=== PATIENT | female | born 2000 | race Caucasian/White ===

== ENCOUNTER 2024-09-09 15:28 | Emergency (ER) | payer OTHER, SELFPAY ==
[2024-09-09 15:31] VITALS: BP 103/73
[2024-09-09 15:48] LABS: % Basophils 0.8 % (0-2); % Eosinophils 1.4 % (0-6); % Immature Granulocytes 0.3 % (0-0.5); % Lymphocytes 40.5 % (20.5-51.1); % Monocytes 6.3 % (1.7-9.3); % Neutrophils 50.7 % (42.2-75.2); Absolute Basophils 0.1 10^3/uL (0-0.2); Absolute Eosinophils 0.1 10^3/uL (0-0.7); Absolute Lymphocytes 3.2 10^3/uL (1.2-3.4); Absolute Monocytes 0.5 10^3/uL (0.1-0.6); Hematocrit 39.2 % (37.0-47.0); Hemoglobin 13.6 g/dL (12.0-16.0); Mean Corp Hgb Conc. 34.7 g/dL (33.0-37.0); Mean Corpuscular Hgb 29.9 pg (27.0-31.0); Mean Corpuscular Volume 86.2 fL (81.0-99.0); Mean Platelet Volume 9.6 fL (7.4-10.4); Nucleated Red Blood Cells % 0 %; Platelet Count 242 10^3/uL (130-400); Red Blood Cell Count 4.55 10^6/uL (4.20-5.40); Red Cell Dist. Width 12.2 % (11.5-14.5); White Blood Cell Count 7.9 10^3/uL (4.8-10.8)
[2024-09-09 15:59] LABS: HCG, Serum Qualitative Screen Negative
[2024-09-09 16:03] LABS: ALT (SGPT) 16 U/L (0-35); AST (SGOT) 19 U/L (14-36); Albumin 4.5 g/dl (3.5-5.0); Alkaline Phosphatase 59 U/L (38-126); Blood Urea Nitrogen 6 mg/dl (7-17); Calcium 9.3 mg/dl (8.4-10.2); Carbon Dioxide 19 mmol/L (22-30); Chloride 108 mmol/L (98-107); Glucose 101 mg/dl (70-99); Potassium 3.7 mmol/L (3.5-5.1); Sodium 143 mmol/L (135-145); Total Bilirubin 0.3 mg/dl (0.2-1.3); Total Protein 7.1 g/dl (6.3-8.2); eGFR > 60.00
--- NOTE | 2024-09-09 17:29 | ED.GENMED ---
History of Present Illness
General
Chief Complaint: Vomiting Blood
Time Seen by Provider: 09/09/24 17:08
History of Present Illness
History of Present Illness:
Patient is a 24-year-old woman with history of anxiety, bipolar disorder presenting to the emergency department with blood-tinged emesis. Patient states about a week ago she had a significant amount of alcohol more than she is used to. She states
that since then she has been having some heartburn and nausea. She also states she is under a lot of stress. Since the alcohol intake patient states that she is having decreased p.o. secondary to nausea. She started vomiting 2 days ago.
Yesterday there was a spot of blood in it and today she had a streak of blood so she came in for further evaluation. She does have a family history of peptic ulcer disease. She occasionally does get a metallic taste in her mouth and burning chest
pain consistent with reflux. At this time patient denies any fevers chills or abdominal pain. She does feel slightly nauseous. Her did have similar symptoms and he was hospitalized for however he is now better. She denies any urinary
symptoms. Her last period was years ago she is on the Depo shot.
Past History
Past History
ED Past Medical History: None and Other (Anxiety)
ED Past Surgical History: None
Social History
Tobacco: Non-smoker
Alcohol: None
Family History
Family History: Other (She was adopted but knows her natural mother had seizures)
Phy Exam
Physical Exam
Physical Exam:
GENERAL: in no acute distress
HEENT: normocephalic, extraocular movements intact, dry oral mucosa
NECK: normal inspection
RESPIRATORY: no respiratory distress, clear to auscultation bilaterally
CARDIOVASCULAR: regular rate and rhythm
ABDOMEN/: soft, non-distended, non-tender to palpation, no rebound or guarding
EXTREMITIES: non-tender, no edema/swelling
NEUROLOGIC: awake and alert, moves all extremities
SKIN: warm
Course
Orders/Labs/Results
Orders:
Orders
09/09/24 15:34
Test Result ONCE
09/09/24 15:42
Complete Blood Count/With Diff Urgent
Comprehensive Metabolic Panel Urgent
HCG, Serum Qualitative Screen Urgent
09/09/24 17:28
0.9% Sodium Chloride 1000 ml [Nss] 1,000 ml IV BOLUS
Famotidine [Pepcid] 20 mg IV NOW STA
Mag Hydrox/Al Hydrox/Simeth [Maalox] 30 ml PO NOW STA
09/09/24 17:32
Ondansetron Injectable [Zofran] 4 mg IV NOW STA
09/09/24 17:52
Lactic Acid Urgent
09/09/24 19:42
Urinalysis Reflex To Culture Urgent
Date Specimen was Collected: 09/09/24
Time Specimen was Collected: 19:21
Urine Microscopic Reflex Cult Urgent
Abnormal Lab Results
09/09/24 09/09/24
15:42 19:42
Chloride 108 H mmol/L
(98-107)
Carbon Dioxide 19 L mmol/L
(22-30)
BUN 6 L mg/dl
(7-17)
Glucose 101 H mg/dl
(70-99)
Urine Ketones 2+ A
(Negative)
Urine Urobilinogen 2+ A
(Neg - 1+)
Leukocyte Esterase Rfl Trace A
(Negative)
Urine Bacteria (Reflex) Few A
(Negative)
09/09/24 15:42
09/09/24 15:42
Vital Signs
Initial and Last Documented VS:
Initial Vital Signs
Temp Pulse Resp BP Pulse Ox
98.4 F 108 18 103/73 96
09/09/24 15:31 09/09/24 15:31 09/09/24 15:31 09/09/24 15:31 09/09/24 15:31
Last Documented Vital Signs
Temp Pulse Resp BP Pulse Ox
98.4 F 68 16 97/65 99
09/09/24 15:31 09/09/24 20:28 09/09/24 20:28 09/09/24 20:28 09/09/24 20:28
MDM/Problems Addressed
Differential Diagnosis Includes:
Patient is a 24-year-old woman presenting to the emergency department with 1 week of decreased p.o. and 2 days of blood streaks in her emesis. Vitals here notable for blood pressure of 103/73 and exam does show dry oral mucosa with a benign
abdomen. Likely hematemesis from Adrianna-Briseno tear or peptic ulcer disease or gastritis/esophagitis with alcohol and stress. No significant alcohol intake to suggest varices. No history of bleeding disorders and she is not on any blood thinners.
Abdomen is benign so less likely to be an acute abdomen. Blood work obtained prior to evaluation does show an anion gap acidosis. Will add on lactate and check urine for ketones. test negative. Will give fluids and Zofran. Will
reassess to see if symptoms have improved and she can tolerate p.o.
*Critical Care Note
Total Time (30-74mins, 75-104mins- exclusive of procedures): Not Applicable
Update Note
Update Note:
Lactate is normal. There are ketones in her urine likely from starvation ketosis which does explain the bicarb. She is overall well-appearing. Pain has improved. She is tolerating p.o. Will discharge at this time
ED Attending Note
-
Portions of this chart may have been created with voice recognition software.� Occasional wrong word or��sound alike� substitutions may have occurred due to the inherent limitations of voice recognition software.
Discharge Plan
Departure
Patient Disposition: Home (Routine Discharge)
Date of Disposition: 09/09/24
Time of Disposition: 20:55
Patient with high blood pressure during this ER visit?: No
Discharge Problem:
Vomiting
Instructions: Nausea and Vomiting, Adult (DC)
Prescriptions:
No Action
ibuprofen 600 MG tablet
600 mg PO Q4HPRN PRN (Reason: cramps) Qty: 0 0RF
Referrals:
Gregorio Lu MD [Family Provider] -
Interventions
Interventions:
*Risk Screen - Suicide Last Done: 09/09/24 15:31
*General Assessment Last Done: 09/09/24 15:31
*Neglect/Abuse Screening Last Done: 09/09/24 15:31
ED- Fall Risk Assessment Last Done: 09/09/24 19:44
RX-Ajetrg-Nwdpqeekfc Assessment Last Done: 09/09/24 19:44
ED- Pulmonary Assessment Last Done: 09/09/24 19:44
Discharge Date and Time
Print Language: FRENCH
[2024-09-09 18:15] LABS: Lactic Acid 0.7 mmol/L (0.7-2.0)
[2024-09-09] MEDS: PEPCID 20 MG IV (18:16)
[2024-09-09] MEDS: NSS 1000 IV (18:16)
[2024-09-09] MEDS: MAALOX 30 ML PO (18:17)
[2024-09-09] MEDS: ZOFRAN 4 MG IV (18:17)
[2024-09-09 18:20] VITALS: BP 100/68
[2024-09-09 19:42] VITALS: BMI 32.5
[2024-09-09 19:50] LABS: Urine Albumin Trace (Neg - Trace); Urine Bilirubin Negative (Negative); Urine Character Clear (Clear); Urine Color Yellow; Urine Glucose Negative (Negative); Urine Ketone 2+ (Negative); Urine Leukocyte Trace (Negative); Urine Nitrite Negative (Negative); Urine Occult Blood Negative (Negative); Urine Urobilinogen 2+ (Neg - 1+)
--- NOTE | 2024-09-09 20:00 | EDRN ---
Patient unhooked to use the restroom and back in bed resting comfortably
[2024-09-09 20:04] LABS: Urine Squamous Cell 16-20 /LPF (Few)
[2024-09-09 20:05] LABS: Urine Bacteria Few (Negative); Urine Red Blood Cell None Seen /HPF (0-2)
[2024-09-09 20:28] VITALS: BP 97/65
--- NOTE | 2024-09-09 20:58 | EDRN ---
Gave patient some crackers and water, reports some nausea but was able to hold down them, informed Dr. Maki
[2024-09-09] MEDS: ZOFRAN ODT (ORALLY DISINTEGRATING) 4 MG PO (21:18)
== END 2024-09-09 21:24 | disposition home or self-care (01) ==
LOC: EMR 15:28
PROVIDERS: Emergency Medicine; EMERGENCY PHYSICIAN Student in an Organized Health Care Education/Training Program; FAMILY PHYSICIAN Family Medicine
DX: K92.0 Hematemesis (principal); R07.89 Other chest pain; R12 Heartburn; F41.9 Anxiety disorder, unspecified; F31.9 Bipolar disorder, unspecified
CPT/HCPCS: 99284; 96374; 96375; 96361; 80053; 81003; 81015; 83605; 84703; 85025

== ENCOUNTER → 2024-10-10 12:50 | Outpatient (REF) | payer OTHER, SELFPAY | LOC: RCS 12:50 | PROVIDERS: ATTENDING PHYSICIAN Internal Medicine Cardiovascular Disease; FAMILY PHYSICIAN Family Medicine | DX: R00.2 Palpitations (principal) | CPT/HCPCS: 93306 ==

== ENCOUNTER 2024-12-08 19:17 | Emergency (ER) | payer OTHER, SELFPAY ==
[2024-12-08 19:19] VITALS: BP 105/66
[2024-12-08 19:33] LABS: % Basophils 0.5 % (0-2); % Eosinophils 0.7 % (0-6); % Immature Granulocytes 0.4 % (0-0.5); % Lymphocytes 30.8 % (20.5-51.1); % Neutrophils 60.6 % (42.2-75.2); Absolute Eosinophils 0.1 10^3/uL (0-0.7); Absolute Lymphocytes 2.6 10^3/uL (1.2-3.4); Absolute Monocytes 0.6 10^3/uL (0.1-0.6); Absolute Neutrophils 5.2 10^3/uL (1.4-6.5); Hematocrit 37.7 % (37.0-47.0); Hemoglobin 12.9 g/dL (12.0-16.0); Mean Corp Hgb Conc. 34.2 g/dL (33.0-37.0); Mean Corpuscular Hgb 29.8 pg (27.0-31.0); Mean Corpuscular Volume 87.1 fL (81.0-99.0); Mean Platelet Volume 9.4 fL (7.4-10.4); Nucleated Red Blood Cells % 0 %; Platelet Count 244 10^3/uL (130-400); Red Blood Cell Count 4.33 10^6/uL (4.20-5.40); Red Cell Dist. Width 12.1 % (11.5-14.5); White Blood Cell Count 8.6 10^3/uL (4.8-10.8)
[2024-12-08 19:41] LABS: HCG, Serum Qualitative Screen Negative
[2024-12-08 19:46] LABS: ALT (SGPT) 17 U/L (0-35); AST (SGOT) 20 U/L (14-36); Albumin 4.2 g/dl (3.5-5.0); Alkaline Phosphatase 62 U/L (38-126); Blood Urea Nitrogen 7 mg/dl (7-17); Calcium 9.2 mg/dl (8.4-10.2); Carbon Dioxide 21 mmol/L (22-30); Chloride 106 mmol/L (98-107); Glucose 105 mg/dl (70-99); Potassium 3.7 mmol/L (3.5-5.1); Sodium 137 mmol/L (135-145); eGFR > 60.00
[2024-12-08 19:55] LABS: Troponin I < 0.012 ng/ml
--- NOTE | 2024-12-08 23:08 | ED.GENMED ---
History of Present Illness
General
Chief Complaint: Chest Pain
Source: patient
Exam Limitations: none
Time Seen by Provider: 12/08/24 22:49
History of Present Illness
History of Present Illness:
See MDM
Past History
Past History
ED Past Medical History: None and Other (Anxiety)
ED Past Surgical History: None
Social History
Tobacco: Non-smoker
Alcohol: None
Family History
Family History: Other (She was adopted but knows her natural mother had seizures)
Phy Exam
Physical Exam
Physical Exam:
See MDM
Scores
Heart Score for Chest Pain Patients
STEMI patient?: No
History: Slightly or Non-Suspicious
ECG: Normal
Age: </= 45 years
Risk Factors: No Risk Factors
Troponin: </= Normal Limit
Heart Score for Chest Pain Patients: 0
Heart Score Risk: 2.5% MACE over next 6 weeks
Course
Orders/Labs/Results
Orders:
Orders
12/08/24 19:18
Electrocardiogram (*1) Urgent
Reason for Study: Chest Pain
Cardiac Monitoring- Treatment ONCE
EKG- Treatment ONCE
IV Insert/Care/Rem.- Treatment PRN
O2 Therapy [RESP] Urgent
Titrate/Wean O2 to maintain O2 sat greater than (%): 90
Special Instructions: Maintain sats >/=90%
Pulse Ox/spot Check [RESP] Urgent
Quantity: 1
Special Instructions: ON ROOM AIR
12/08/24 19:19
Test Result ONCE
12/08/24 19:26
Complete Blood Count/With Diff Urgent
Comprehensive Metabolic Panel Urgent
HCG, Serum Qualitative Screen Urgent
Comment: Notify provider if positive test present
Troponin I Urgent
12/08/24 23:08
Fosfomycin [Monurol] 3 gm PO ONCE ONE
Abnormal Lab Results
12/08/24
19:26
Carbon Dioxide 21 L mmol/L
(22-30)
Glucose 105 H mg/dl
(70-99)
12/08/24 19:26
12/08/24 19:26
Vital Signs
Initial and Last Documented VS:
Initial Vital Signs
Temp Pulse Resp BP Pulse Ox
97.9 F 77 19 105/66 99
12/08/24 19:19 12/08/24 19:19 12/08/24 19:19 12/08/24 19:19 12/08/24 19:19
Last Documented Vital Signs
Temp Pulse Resp BP Pulse Ox
97.9 F 77 19 105/66 99
12/08/24 19:19 12/08/24 19:19 12/08/24 19:19 12/08/24 19:19 12/08/24 19:19
MDM/Problems Addressed
Differential Diagnosis Includes:
HPI and MDM Narrative:
24-year-old female presenting for evaluation of chest pain, shortness of breath and possible dehydration. Patient states she has not been eating. She states she is homeless and she lives in a hotel with her . She states she usually goes to
[facility] but she came here because her was brought here. Blood work was done prior to my evaluation and there is no significant abnormality. She is not clinically dehydrated. EKG is nonischemic. She is extremely well-appearing
and nontoxic. Will provide food for the patient. On my review of systems, patient does acknowledge that she has dysuria and was diagnosed with a UTI. She has been unable to fill the prescription. Because of this, will give dose of Monurol
Physical exam
General: Well appearing and non-toxic
HEENT: protecting airway
Neck: appears supple
CV: No evidence of cyanosis. Regular rate and rhythm
Resp: No accessory muscle use
Abd: Non-distended. Soft and nontender
Extremities: No deformities
Neuro: alert
Psych: Normal affect
Skin: Intact
Problems Addressed including Acute and Chronic Conditions affecting care:
1. Chest pain
Acuity: acute
Prognosis: stable
Details: EKG nonischemic. Patient extremely well-appearing and nontoxic. Troponin negative
2. Dysuria
Acuity: acute
Prognosis: stable
Details: Given her inability to fill prescriptions, will give dose of Monurol
Differential Diagnosis (but not limited to): Noncardiac chest pain, UTI, dehydration
Testing considered: Second troponin
Drug therapy (if applicable): OTC meds, please see d/c instruction regarding Rx drugs
Amount and/or Complexity of Data Reviewed
Clinical info obtained from: Patient
External data reviewed: N/A
Labs I independently reviewed (but not limited to): Glucose mildly elevated at 105 but patient has been told she has hyperglycemia. We discussed the importance of having this followed
Radiology: N/A
Pulse Ox: not hypoxic
EKG independently reviewed: Sinus rhythm, normal axis, no STEMI
[employer] Passenger Car: N/A
Critical Care: N/A
Risk of Complication:
Social Determinants of health: Poor social support
Discussed with other providers: N/A
Escalation of Care includes Admit/Obs: After being observed in the Emergency Department, pt stable for discharge.
Occasional wrong word or 'sound a like' substitutions may have occurred due to the inherent limitations of voice recognition software. Read the chart carefully and recognize, using context, where substitutions have occurred.
*Critical Care Note
Total Time (30-74mins, 75-104mins- exclusive of procedures): Not Applicable
ED Attending Note
-
Portions of this chart may have been created with voice recognition software.� Occasional wrong word or��sound alike� substitutions may have occurred due to the inherent limitations of voice recognition software.
Discharge Plan
Departure
Patient Disposition: Home (Routine Discharge)
Date of Disposition: 12/08/24
Time of Disposition: 23:09
Patient with high blood pressure during this ER visit?: No
Discharge Problem:
Chest pain, Dysuria
Prescriptions:
No Action
ibuprofen 600 MG tablet
600 mg PO Q4HPRN PRN (Reason: cramps) Qty: 0 0RF
Activity Restrictions/Additional Instructions:
Please return for any worsening symptoms.
You may return at any time if you have further concerns.
Interventions
Interventions:
*Risk Screen - Suicide Last Done: 12/08/24 19:19
*Neglect/Abuse Screening Last Done: 12/08/24 19:19
Discharge Date and Time
Print Language: SYRIAC
[2024-12-08] MEDS: MONUROL 3 GM PO (23:35)
[2024-12-09 00:18] VITALS: BP 110/68
== END 2024-12-08 23:45 | disposition home or self-care (01) ==
LOC: EMR 19:17
PROVIDERS: Emergency Medicine; EMERGENCY PHYSICIAN Student in an Organized Health Care Education/Training Program; FAMILY PHYSICIAN Family Medicine
DX: R07.89 Other chest pain (principal); R30.0 Dysuria; R06.02 Shortness of breath; F41.9 Anxiety disorder, unspecified; Z59.01 Sheltered homelessness; N39.0 Urinary tract infection, site not specified; R73.9 Hyperglycemia, unspecified; Z60.8 Other problems related to social environment
CPT/HCPCS: 99283; 94760; 80053; 84484; 84703; 85025; 93005

== ENCOUNTER 2024-12-11 13:09 | Emergency (ER) | payer OTHER, SELFPAY ==
[2024-12-11 13:15] VITALS: BP 111/80
--- NOTE | 2024-12-11 13:21 | ED.GENMED ---
ED Provider Triage
<Jina Bo PA-C - Last Filed: 12/11/24 13:21>
-
Patient seen by provider in Triage?: Seen in Triage
24 y/o F
History of Present Illness
<Jina Bo PA-C - Last Filed: 12/11/24 13:21>
General
Chief Complaint: Heart Rate Problem
Time Seen by Provider: 12/11/24 16:30
<Priya Goddard PA-C - Last Filed: 12/11/24 19:38>
General
Source: patient
Exam Limitations: none
History of Present Illness
History of Present Illness:
24yoF with a history of anxiety and depression presenting for evaluation of shortness of breath. Patient drink unrefrigerated milk yesterday and subsequently had vomiting and diarrhea throughout the day yesterday. Those symptoms have resolved.
She states that her heart was racing throughout the night last night and into today. She also reports shortness of breath with associated pleuritic pain. She states it feels like her lungs are sore. She denies any fevers, cough, abdominal pain.
Past History
<Jina Bo PA-C - Last Filed: 12/11/24 13:21>
Past History
ED Past Medical History: None and Other (Anxiety)
ED Past Surgical History: None
Social History
Tobacco: Non-smoker
Alcohol: None
Family History
Family History: Other (She was adopted but knows her natural mother had seizures)
Phy Exam
<Priya Goddard PA-C - Last Filed: 12/11/24 19:38>
General Physical Exam
General Presentation: well appearing and no apparent distress
General age: appears stated age
General Skin: warm and dry
General Habitus: normal
General Mental: alert
ENT Exam
ENT Exam: normocephalic
Cardiovascular Exam
Cardiovascular Exam: regular rate/rhythm and no murmur
Pulmonary Exam
Pulmonary Exam: lungs clear, no respiratory distress, no rales, no crackles, no rhonchi and other (+Tenderness in bilateral ribcage)
Neurological Exam
Neurological Exam: alert
Michelle Coma Scale
Eye Opening: Spontaneous
Verbal Response: Oriented
Motor Response: Obeys Commands
GCS Total Score: 15
Skin Exam
Skin Exam: normal color and warm/dry
Psychiatric Exam
Psychiatric Exam: normal mood/affect
Course
<Jina Bo PA-C - Last Filed: 12/11/24 13:21>
Orders/Labs/Results
Orders:
Orders
12/11/24 13:11
Electrocardiogram (*1) Urgent
Reason for Study: Palpitations
EKG- Treatment ONCE
12/11/24 13:17
Acetaminophen [Tylenol] 650 mg PO NOW STA
12/11/24 13:20
Test Result ONCE
12/11/24 13:24
Complete Blood Count/With Diff Urgent
Comprehensive Metabolic Panel Urgent
D-Dimer Urgent
HCG, Serum Qualitative Screen Urgent
Lipase Urgent
TSH Reflex To Free T4 Urgent
Troponin I Urgent
12/11/24 16:39
Acetaminophen [Tylenol] 650 mg .ROUTE .STK-MED ONE
12/11/24 16:42
Chest [CR Chest - 2 Views ] Urgent
Comment:
Reason For Exam: chest pain
Abnormal Lab Results
12/11/24
13:24
Absolute Lymphs (auto) 0.9 L 10^3/uL
(1.2-3.4)
Neutrophils % 76.1 H %
(42.2-75.2)
Lymphocytes % 14.8 L %
(20.5-51.1)
Carbon Dioxide 20 L mmol/L
(22-30)
Glucose 118 H mg/dl
(70-99)
12/11/24 13:24
12/11/24 13:24
Vital Signs
Initial and Last Documented VS:
Initial Vital Signs
Temp Pulse Resp BP Pulse Ox
97.7 F 120 17 111/80 97
12/11/24 13:15 12/11/24 13:15 12/11/24 13:15 12/11/24 13:15 12/11/24 13:15
Last Documented Vital Signs
Temp Pulse Resp BP Pulse Ox
98.5 F 75 20 108/67 98
12/11/24 16:31 12/11/24 16:31 12/11/24 16:31 12/11/24 16:31 12/11/24 16:31
<Priya Goddard PA-C - Last Filed: 12/11/24 19:38>
Orders/Labs/Results
Orders:
Orders
12/11/24 13:11
Electrocardiogram (*1) Urgent
Reason for Study: Palpitations
EKG- Treatment ONCE
12/11/24 13:17
Acetaminophen [Tylenol] 650 mg PO NOW STA
12/11/24 13:20
Test Result ONCE
12/11/24 13:24
Complete Blood Count/With Diff Urgent
Comprehensive Metabolic Panel Urgent
D-Dimer Urgent
HCG, Serum Qualitative Screen Urgent
Lipase Urgent
TSH Reflex To Free T4 Urgent
Troponin I Urgent
12/11/24 16:39
Acetaminophen [Tylenol] 650 mg .ROUTE .STK-MED ONE
12/11/24 16:42
Chest [CR Chest - 2 Views ] Urgent
Comment:
Reason For Exam: chest pain
Abnormal Lab Results
12/11/24
13:24
Absolute Lymphs (auto) 0.9 L 10^3/uL
(1.2-3.4)
Neutrophils % 76.1 H %
(42.2-75.2)
Lymphocytes % 14.8 L %
(20.5-51.1)
Carbon Dioxide 20 L mmol/L
(22-30)
Glucose 118 H mg/dl
(70-99)
12/11/24 13:24
12/11/24 13:24
Vital Signs
Initial and Last Documented VS:
Initial Vital Signs
Temp Pulse Resp BP Pulse Ox
97.7 F 120 17 111/80 97
12/11/24 13:15 12/11/24 13:15 12/11/24 13:15 12/11/24 13:15 12/11/24 13:15
Last Documented Vital Signs
Temp Pulse Resp BP Pulse Ox
98.5 F 75 20 108/67 98
12/11/24 16:31 12/11/24 16:31 12/11/24 16:31 12/11/24 16:31 12/11/24 16:31
<Priya Goddard PA-C - Last Filed: 12/11/24 19:38>
MDM/Problems Addressed
Differential Diagnosis Includes:
24yoF here with SOB, heart racing, and pleuritic pain that began last night. Had vomiting and diarrhea yesterday which has since resolved. HR 120 in triage. Remainder of vitals are stable. She is well appearing in no distress. There is reproducible
chest wall tenderness on exam. Differential diagnosis includes but is not limited to: costochondritis, electrolyte abnormality, PE, pneumonia, viral illness
Initial ED plan: Labs and EKG obtained in triage. EKG shows NSR without ectopy or ischemic changes. Labs unremarkable including normal electrolytes and TSH. D-dimer normal making PE very unlikely. Troponin WNL. Will obtain CXR.
<Priya Goddard PA-C - Last Filed: 12/11/24 19:38>
*EKG
Interpreted by ED Provider?: Yes
EKG Intrepretation Date: 12/11/24
Heart Rate: 89
Rate: normal
Rhythm: sinus
Lando: normal axis
Interval: normal interval
QRS Pattern: normal QRS
Ischemia: no ischemia
*Critical Care Note
Total Time (30-74mins, 75-104mins- exclusive of procedures): Not Applicable
<Priya Goddard PA-C - Last Filed: 12/11/24 19:38>
Update Note
Update Note:
Chest x-ray normal. Heart rate normalized on reassessment. Suspect musculoskeletal chest pain as pain is reproducible on exam. This may be 2/2 vomiting yesterday. No indication for hospitalization at this time. Advised close follow-up with PCP
and ED return precautions discussed. Patient expressed understanding and is agreement with plan. She was discharged in stable condition.
ED Attending Note
<Jina Bo PA-C - Last Filed: 12/11/24 13:21>
-
Portions of this chart may have been created with voice recognition software.� Occasional wrong word or��sound alike� substitutions may have occurred due to the inherent limitations of voice recognition software.
Discharge Plan
Departure
Patient Disposition: Home (Routine Discharge)
Date of Disposition: 12/11/24
Time of Disposition: 18:43
Patient with high blood pressure during this ER visit?: No
Discharge Problem:
Shortness of breath
Instructions: Shortness of breath
Prescriptions:
No Action
ibuprofen 600 MG tablet
600 mg PO Q4HPRN PRN (Reason: cramps) Qty: 0 0RF
Referrals:
Gregorio Lu MD [Family Provider] -
Activity Restrictions/Additional Instructions:
Please follow-up with your family doctor. Return to the ER with any new or worsening symptoms.
Interventions
Interventions:
*Risk Screen - Suicide Last Done: 12/11/24 13:17
*General Assessment Last Done: 12/11/24 13:17
*Neglect/Abuse Screening Last Done: 12/11/24 13:17
ED- Fall Risk Assessment Last Done: 12/11/24 16:32
*ED COVID-19 Vaccine History Last Done: 12/11/24 13:17
*Nursing Disposition Last Done: 12/11/24 18:52
ED- Cardiac Assessment Last Done: 12/11/24 16:32
ED- Pulmonary Assessment Last Done: 12/11/24 16:32
Discharge Date and Time
Discharge Date/Time: 12/11/24 18:53
Print Language: FIJIAN
[2024-12-11 13:32] LABS: % Basophils 0.5 % (0-2); % Eosinophils 0.3 % (0-6); % Immature Granulocytes 0.3 % (0-0.5); % Lymphocytes 14.8 % (20.5-51.1); % Neutrophils 76.1 % (42.2-75.2); Absolute Lymphocytes 0.9 10^3/uL (1.2-3.4); Absolute Monocytes 0.5 10^3/uL (0.1-0.6); Absolute Neutrophils 4.8 10^3/uL (1.4-6.5); Hematocrit 40.3 % (37.0-47.0); Mean Corp Hgb Conc. 34.7 g/dL (33.0-37.0); Mean Corpuscular Hgb 30.4 pg (27.0-31.0); Mean Corpuscular Volume 87.4 fL (81.0-99.0); Mean Platelet Volume 9.4 fL (7.4-10.4); Nucleated Red Blood Cells % 0 %; Platelet Count 199 10^3/uL (130-400); Red Blood Cell Count 4.61 10^6/uL (4.20-5.40); Red Cell Dist. Width 12.1 % (11.5-14.5); White Blood Cell Count 6.3 10^3/uL (4.8-10.8)
[2024-12-11 13:45] LABS: D-Dimer 0.34 ug/mlFEU (0.00-0.50)
[2024-12-11 13:46] LABS: HCG, Serum Qualitative Screen Negative
[2024-12-11 13:50] LABS: ALT (SGPT) 17 U/L (0-35); AST (SGOT) 21 U/L (14-36); Albumin 4.4 g/dl (3.5-5.0); Alkaline Phosphatase 60 U/L (38-126); Blood Urea Nitrogen 10 mg/dl (7-17); Carbon Dioxide 20 mmol/L (22-30); Chloride 103 mmol/L (98-107); Glucose 118 mg/dl (70-99); Potassium 3.8 mmol/L (3.5-5.1); Sodium 136 mmol/L (135-145); Total Bilirubin 1.1 mg/dl (0.2-1.3); Total Protein 7.1 g/dl (6.3-8.2); eGFR > 60.00
[2024-12-11 14:06] LABS: Troponin I < 0.012 ng/ml
[2024-12-11 14:12] LABS: Lipase 70 U/L (23-300)
[2024-12-11 14:20] LABS: TSH Reflex To Free T4 0.83 uIU/ml (0.47-4.68)
[2024-12-11 16:31] VITALS: BP 108/67
[2024-12-11] MEDS: TYLENOL 650 MG PO (16:43)
== END 2024-12-11 18:53 | disposition home or self-care (01) ==
LOC: EMR 13:09
PROVIDERS: Physician Assistant; EMERGENCY PHYSICIAN Emergency Medicine; FAMILY PHYSICIAN Family Medicine
DX: R06.02 Shortness of breath (principal); R11.10 Vomiting, unspecified; R19.7 Diarrhea, unspecified; R07.81 Pleurodynia; R00.0 Tachycardia, unspecified; F41.9 Anxiety disorder, unspecified; F32.A Depression, unspecified
CPT/HCPCS: 99283; 71046; 80053; 83690; 84443; 84484; 84703; 85025; 85379; 93005